=== PATIENT | female | born 2000 | race Hispanic/Latino ===

== ENCOUNTER 2019-01-05 21:28 | Emergency (ER) | payer OTHER, SELFPAY ==
--- NOTE | 2019-01-05 22:45 | EDPHYS ---
Physician Documentation [facility] Name: Dayanara Briceno Age: 18 yrs Sex: Female : 2000 Arrival Date: 01/05/2019 Time: 21:28 Bed 12 Private MD: ED Physician Hansel Ceballos HPI: 01/05 21:51 This 18 yrs old Female presents to ER via Wheelchair with complaints of Ankle snw Injury. 21:51 The patient presents with pain, that is acute, swelling, tenderness. The complaints snw affect the right ankle. Onset: The symptoms/episode began/occurred suddenly, just prior to arrival. Context: The problem was sustained outdoors, resulted from a mis-step by the patient, stair, The mechanism of injury involved inversion of the affected ankle. The patient is unable to bear weight. The patient is not able to ambulate. Associated signs and symptoms: The patient has no apparent associated signs or symptoms. Severity of symptoms: At their worst the symptoms were moderate. The patient has not experienced similar symptoms in the past. The patient has not recently seen a physician. 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 - Social history:: Smoking status: Patient/guardian denies using tobacco, Patient uses alcohol, occasionally. - Ebola Screening: : Patient negative for fever greater than or equal to 101.5 degrees Fahrenheit, and additional compatible Ebola Virus Disease symptoms Patient denies exposure to infectious person Patient denies travel to an Ebola-affected area in the 21 days before illness onset. ROS: 21:50 Constitutional: Negative for fever, chills, and weight loss, Eyes: Negative for injury, snw pain, redness, and discharge, ENT: Negative for injury, pain, and discharge, Neck: Negative for injury, pain, and swelling, Cardiovascular: Negative for chest pain, palpitations, and edema, Respiratory: Negative for shortness of breath, cough, wheezing, and pleuritic chest pain, Abdomen/GI: Negative for abdominal pain, nausea, vomiting, diarrhea, and constipation, Back: Negative for injury and pain, : Negative for injury, bleeding, discharge, and swelling, Skin: Negative for injury, rash, and discoloration, Neuro: Negative for headache, weakness, numbness, tingling, and seizure, Psych: Negative for depression, anxiety, suicide ideation, homicidal ideation, and hallucinations. 21:50 MS/extremity: Positive for injury or acute deformity, pain, of the right lateral malleolus. Exam: 21:50 Constitutional: This is a well developed, well nourished patient who is awake, alert, snw and in no acute distress. Head/Face: Normocephalic, atraumatic. Eyes: Pupils equal round and reactive to light, extra-ocular motions intact. Lids and lashes normal. Conjunctiva and sclera are non-icteric and not injected. Cornea within normal limits. Periorbital areas with no swelling, redness, or edema. ENT: Nares patent. No nasal discharge, no septal abnormalities noted. Tympanic membranes are normal and external auditory canals are clear. Oropharynx with no redness, swelling, or masses, exudates, or evidence of obstruction, uvula midline. Mucous membranes moist. Neck: Trachea midline, no thyromegaly or masses palpated, and no cervical lymphadenopathy. Supple, full range of motion without nuchal rigidity, or vertebral point tenderness. No Meningismus. Chest/axilla: Normal chest wall appearance and motion. Nontender with no deformity. No lesions are appreciated. Cardiovascular: Regular rate and rhythm with a normal S1 and S2. No gallops, murmurs, or rubs. Normal PMI, no JVD. No pulse deficits. Respiratory: Lungs have equal breath sounds bilaterally, clear to auscultation and percussion. No rales, rhonchi or wheezes noted. No increased work of breathing, no retractions or nasal flaring. Abdomen/GI: Soft, non-tender, with normal bowel sounds. No distension or tympany. No guarding or rebound. No evidence of tenderness throughout. Back: No spinal tenderness. No costovertebral tenderness. Full range of motion. Skin: Warm, dry with normal turgor. Normal color with no rashes, no lesions, and no evidence of cellulitis. Neuro: Awake and alert, GCS 15, oriented to person, place, time, and situation. Cranial nerves II-XII grossly intact. Motor strength 5/5 in all extremities. Sensory grossly intact. Cerebellar exam normal. Normal gait. Psych: Awake, alert, with orientation to person, place and time. Behavior, mood, and affect are within normal limits. 21:50 Musculoskeletal/extremity: Extremities: grossly normal except: noted in the right lateral malleolus: decreased ROM, pain, tenderness, ROM: intact in all extremities, Circulation is intact in all extremities. Sensation intact. Compartment Syndrome exam of affected extremity: no numbness, no tingling, no sensation deficit. Vital Signs: 21:30 BP 113 / 64; Pulse 89; Resp 18; Temp 97.5(O); Pulse Ox 99% on R/A; Weight 68.04 kg (R); fc Height 5 ft. 2 in. (157.48 cm) (R); Pain 7/10; 21:30 Body Mass Index 27.44 (68.04 kg, 157.48 cm) fc MDM: 21:43 Patient medically screened. snw 22:57 Data reviewed: vital signs, nurses notes. Data interpreted: Pulse oximetry: on room air snw is 99 %. Interpretation: normal. Counseling: I had a detailed discussion with the patient and/or guardian regarding: the historical points, exam findings, and any diagnostic results supporting the discharge/admit diagnosis, radiology results, the need for outpatient follow up, to return to the emergency department if symptoms worsen or persist or if there are any questions or concerns that arise at home. Special discussion: Based on the history and exam findings, there is no indication for further emergent testing or inpatient evaluation. I discussed with the patient/guardian the need to see the orthopedic surgeon for further evaluation of the symptoms. I discussed with the patient/guardian the need to see the primary care provider for further evaluation of the symptoms. 01/05 21:46 Order name: Ankle Right 3 View XRAY snw 01/05 21:46 Order name: Ice pack; Complete Time: 22:07 snw 01/05 22:43 Order name: Walking boot; Complete Time: 23:38 snw Administered Medications: No medications were administered Disposition: 01/06 01:35 Co-signature as Attending Physician, Hansel Ceballos MD. acosta Disposition: 01/05/19 22:44 Discharged to Home. Impression: Sprain of ankle. - Condition is Stable. - Discharge Instructions: Ankle Sprain, Cast or Splint Care, Adult, Ankle Pain, Cryotherapy. - Prescriptions for Diclofenac Sodium 75 mg Oral Tablet Sustained Release - take 1 tablet by ORAL route 2 times per day; 30 tablet. - Medication Reconciliation Form, Thank You Letter, Antibiotic Education, Prescription Opioid Use, Work release form form. - Follow up: Private Physician; When: 2 - 3 days; Reason: Recheck today's complaints, Continuance of care, Re-evaluation by your physician. Follow up: Emergency Department; When: As needed; Reason: Worsening of condition. Signatures: Dispatcher [employer] EDMS Hansel Ceballos MD MD pkl Therrien, Shelly, CERTIFIED DIETARY MANAGER-C CERTIFIED DIETARY MANAGER-Csnw Pippa Chin RN RN fc Corrections: (The following items were deleted from the chart) 01/05 23:42 22:44 01/05/2019 22:44 Discharged to Home. Impression: Sprain of ankle. Condition is fc Stable. Forms are Medication Reconciliation Form, Thank You Letter, Antibiotic Education, Prescription Opioid Use. Follow up: Private Physician; When: 2 - 3 days; Reason: Recheck today's complaints, Continuance of care, Re-evaluation by your physician. Follow up: Emergency Department; When: As needed; Reason: Worsening of condition. snw
--- NOTE | 2019-01-05 22:45 | ER ---
Nurse's Notes [facility] Name: Dayanara Briceno Age: 18 yrs Sex: Female : 2000 Arrival Date: 01/05/2019 Time: 21:28 Bed 12 Private MD: Diagnosis: Sprain of ankle Presentation: 01/05 21:30 Presenting complaint: Patient states: that she was walking down the stairs and when she fc stepped down she felt her right ankle roll and heard a cracking sound. Transition of care: patient was not received from another setting of care. Onset of symptoms was January 05, 2019 at 21:00. Risk Assessment: Do you want to hurt yourself or someone else? Patient reports no desire to harm self or others. Initial Sepsis Screen: Does the patient meet any 2 criteria? No. Patient's initial sepsis screen is negative. Does the patient have a suspected source of infection? No. Patient's initial sepsis screen is negative. Care prior to arrival: None. 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 - Social history:: Smoking status: Patient/guardian denies using tobacco, Patient uses alcohol, occasionally. - Ebola Screening: : Patient negative for fever greater than or equal to 101.5 degrees Fahrenheit, and additional compatible Ebola Virus Disease symptoms Patient denies exposure to infectious person Patient denies travel to an Ebola-affected area in the 21 days before illness onset. Screenin:50 Abuse screen: Denies threats or abuse. Denies injuries from another. Nutritional la1 screening: No deficits noted. Tuberculosis screening: No symptoms or risk factors identified. Fall Risk None identified. Assessment: 21:49 General: Appears comfortable, Behavior is calm, cooperative. General: Behavior is. la1 Pain: Complains of pain in right lateral malleolus. Musculoskeletal: Circulation, motion, and sensation intact. Capillary refill < 3 seconds, is brisk, in bilateral toes. Range of motion: limited in right ankle. Vital Signs: 21:30 BP 113 / 64; Pulse 89; Resp 18; Temp 97.5(O); Pulse Ox 99% on R/A; Weight 68.04 kg (R); fc Height 5 ft. 2 in. (157.48 cm) (R); Pain 7/10; 21:30 Body Mass Index 27.44 (68.04 kg, 157.48 cm) ED Course: 21:28 Patient arrived in ED. ds1 21:30 Arm band placed on Patient placed in an exam room, on a stretcher. fc 21:31 [facility]icks[facility]-C [facility]. snw 21:31 Hansel Ceballos MD is Attending Physician. snw 21:49 Reynaldo Marcum, RN is Primary Nurse. la1 21:50 Triage completed. fc 21:50 Call light in reach. la1 21:50 Arm band placed on left wrist. la1 21:50 No provider procedures requiring assistance completed. Patient did not have IV access la1 during this emergency room visit. 22:38 Ankle Right 3 View XRAY In Process Unspecified. EDMS 23:25 right walking boot. fc Administered Medications: No medications were administered Outcome: 22:44 Discharge ordered by . snw 23:38 Discharged to home ambulatory. 23:38 Condition: good 23:38 Discharge instructions given to patient, family, Instructed on discharge instructions, follow up and referral plans. medication usage, elevation of leg Demonstrated understanding of instructions, follow-up care, medications, elevation Prescriptions given X 1. 23:42 Patient left the ED. Signatures: Dispatcher [employer] EDMS Ann Dickson FNP-C FNP-Pippa Melgoza RN RN Rosalina Gale ds1 Reynaldo Marcum, CLARITZA RN la1
--- NOTE | 2019-01-06 08:28 | RAD REPORT ---
EXAM DESCRIPTION: RAD - Ankle Right 3 View - 01/05/2019 10:38 pm CLINICAL HISTORY: Ankle pain, twisting injury COMPARISON: None. FINDINGS: No fracture, dislocation or periosteal reaction. No joint effusion seen. No joint space na rrowing. Lateral soft tissue swelling is present. IMPRESSION: Soft tissue swelling with no right ankle fracture.
== END 2019-01-05 23:42 | disposition home or self-care (01) ==
LOC: ER 21:28
DX: S93.401A Sprain of unspecified ligament of right ankle, initial encounter (principal); X50.1XXA Overexertion from prolonged static or awkward postures, initial encounter
CPT/HCPCS: 99283

== ENCOUNTER 2019-09-05 12:20 | Emergency (ER) | payer SELFPAY ==
--- OUTSIDE RECORDS SUMMARY | 2019-09-05 12:23 | XMS REPORT | Summary of Care ---
:2000 Author Organization [facility] Address [address] [place] [id number] Care Team Providers Name Role Phone Pcp, Patient Does Not Have A Primary Care Provider Reason for Visit Reason Comments Follow-up Ankle Pain right ankle sprain Encounter Details Date Type Department Care Team Description 02/01/2019 Office Visit [facility] Jesus Higgins S, Sprain of anterior Surgery- [facility] talofibular ligament [address], [address] of right ankle, [address] [place] [address] [place], [place] (Primary Dx) [phone] [id number] Allergies No Known Allergiesdocumented as of this encounter (statuses as of 02/01/2019) Medications Medication Sig Dispensed Refills Start Date End Date Status diclofenac 75 mg EC TK 1 T PO BID. 0 01/06/2019 Active tablet LORATADINE ORAL Take by mouth. 0 Active documented as of this encounter (statuses as of 02/01/2019) Active Problems Not on filedocumented as of this encounter (statuses as of 02/01/2019) Social History Tobacco Use Types Packs/Day Years Used Date Never Smoker Smokeless Tobacco: Never Used Sex Assigned at Date Recorded Not on file Job Start Date Occupation Industry Not on file Not on file Not on file Travel History Travel Start Travel End No recent travel history available. documented as of this encounter Last Filed Vital Signs Vital Sign Reading Time Taken Comments Blood Pressure 96/68 02/01/2019 10:11 AM CDT Pulse - - Temperature - - Respiratory Rate - - Oxygen Saturation - - Inhaled Oxygen Concentration - - Weight 70.3 kg (155 lb) 02/01/2019 10:11 AM CDT Height 157.5 cm (5' 2") 02/01/2019 10:11 AM CDT Body Mass Index 28.35 02/01/2019 10:11 AM CDT documented in this encounter Progress Notes Jesus Higgins, PAC - 02/01/2019 10:15 AM CDT Cc: Dayanara Briceno is a 18 year old female Chief Complaint Patient presents with Follow-up Ankle Pain right ankle sprain Vitals: 02/01/19 1011 BP: 96/68 Weight: 70.3 kg (155 lb) Height: 62" (157.5 cm) [facility] #[id number] - [place], [place] - [address] [facility] [employer] [facility] [employer] Patient coming in for 3 week follow up on right ankle sprain. All Vitals taken, allergies and all medications reviewed, fall risk assessed. KEHINDE THACKER MA 02/01/2019 10:12 AM Dayanara Briceno is a 18 year old female. Here for 3 week follow-up right ankle sprain, He has been wearing her cast boot for 3 weeks the pain is greatly improved and she no longer has some swelling. inversion injury walking down stairs heard a "crackle" , 2/10 pain, worse in the morning, arrived in cast boot. Seen at [facility] ED, diclofenac sodium prescribed. Echymosis. Allergies Dayanara has No Known Allergies. Medications Outpatient Medications Prior to Visit Medication Sig Dispense Refill diclofenac 75 mg EC tablet TK 1 T PO BID. 0 LORATADINE ORAL Take by mouth. No facility-administered medications prior to visit. Histories No past medical history on file. No past surgical history on file. Social History Socioeconomic History Marital status: Single Spouse name: Not on file Number of children: Not on file Years of education: Not on file Highest education level: Not on file Occupational History Not on file Social Needs Financial resource strain: Not on file Food insecurity: Worry: Not on file Inability: Not on file Transportation needs: Medical: Not on file Non-medical: Not on file Tobacco Use Smoking status: Never Smoker Smokeless tobacco: Never Used Substance and Sexual Activity Alcohol use: Not on file Drug use: Not on file Sexual activity: Not on file Lifestyle Physical activity: Days per week: Not on file Minutes per session: Not on file Stress: Not on file Relationships Social connections: Talks on phone: Not on file Gets together: Not on file Attends baptist service: Not on file Active member of club or organization: Not on file Attends meetings of clubs or organizations: Not on file Relationship status: Not on file Intimate partner violence: Fear of current or ex partner: Not on file Emotionally abused: Not on file Physically abused: Not on file Forced sexual activity: Not on file Other Topics Concern Not on file Social History Narrative Not on file No family history on file. Review of Systems Constitutional: Negative. HENT: Negative. Eyes: Negative. Respiratory: Negative. Breasts: Negative. Cardiovascular: Negative. Gastrointestinal: Negative. Genitourinary: Negative. Musculoskeletal: Positive for joint swelling. Skin: Negative. Neurological: Negative. Psychiatric/Behavioral: Negative. Endocrine: Endocrine negative Vital Signs BP 96/68 | Ht 62" (157.5 cm) | Wt 70.3 kg (155 lb) | BMI 28.35 kg/m Physical Exam Musculoskeletal: Physical Exam Constitutional: oriented to person, place, and time. appears well-developed and well-nourished. HENT: Head: Normocephalic and atraumatic. Right Ear: External ear normal. Left Ear: External ear normal. Eyes: Conjunctivae are normal. Neck: Normal range of motion. No strabismus Neck supple. Cardiovascular: Normal rate and regular rhythm. Pulmonary/Chest: Normal respiratory rate equal chest rise and fall in no apparent distress Abdominal: Abdomen nondistended nontender Neurological: alert and oriented to person, place, and time. No asymmetry Skin: Skin is warm and dry. Psychiatric: normal mood and affect. behavior is normal. Judgment and thought content normal. Nursing note and vitals reviewed. Her cast boot was removed and she has no edema she is nontender to palpation of all the ligaments ofher ankle is not exacerbated with inversion or eversion Assessment/Plan Diagnosis 1. Sprain of anterior talofibular ligament of right ankle, initial encounter Plan At this point she can come out of her cast boot and work on her ankle rehabilitation program and follow-up as needed only Perform ankle range of motion in the pattern of the alphabet. This connects the brain to the ankle. Perform as many of the letter as of the alphabet as you can until you can without pain until you can do the entire alphabet. Then start ankle strengthening by getting the weakest theraband at the [employer] or at your pharmacy, start with pressing down like a gas pedal ankle flexion, then tie a loop with the Theraband and put the loop on the side of the foot move the foot laterally then putthe loop on the other side. Tie the Therapy band to a fixed object such as a table leg. The foot - move the foot medially. Then put the loop on the top of the foot pick the foot up these are for directions up down left and right perform in sets of 10. Do as many sets of 10. As you can without painuntil you can do 8 sets of 10. Recommend a lace up ankle brace Swede-O type documented in this encounter Plan of Treatment Health Maintenance Due Date Last Done Comments MENINGOCOCCAL B VACCINES (1 of 2 - 2008 Risk Bexsero 2-dose series) VARICELLA VACCINES (1 of 2 - 13+ 2011 2-dose series) HPV VACCINES (1 - Female 3-dose 2013 series) CHLAMYDIA SCREENING 2014 DTaP,Tdap,and Td Vaccines (1 - 2017 Tdap) INFLUENZA VACCINE 03/03/2019 MENINGOCOCCAL VACCINE Aged Out No longer eligible based on patient's age to complete this topic PNEUMOCOCCAL 0-64 YEARS COMBINED Aged Out No longer eligible based on SERIES patient's age to complete this topic documented as of this encounter Results Not on filedocumented in this encounter Visit Diagnoses Diagnosis Sprain of anterior talofibular ligament of right ankle, initial encounter - Primary documented in this encounter
--- OUTSIDE RECORDS SUMMARY | 2019-09-05 12:23 | XMS REPORT ---
:2000 Author Organization [facility] Address [address] [place] [address] [address] [place] [address] Care Team Providers Name Role Phone Unavailable Unavailable Unavailable Problems This patient has no known problems. Allergies, Adverse Reactions, Alerts This patient has no known allergies or adverse reactions. Medications This patient has no known medications.
--- OUTSIDE RECORDS SUMMARY | 2019-09-05 12:23 | XMS REPORT | Summary of Care ---
:[address] [facility] Address [address] [place] [id number] Care Team Providers Name Role Phone Pcp, Patient Does Not Have A Primary Care Provider Reason for Visit Reason Comments Follow-up Ankle Pain right ankle sprain Encounter Details Date Type Department Care Team Description 02/01/[address] [facility] Orthopaedic Jesus Higgins S, Sprain of anterior Surgery- [facility] talofibular ligament [address], [address] of right ankle, [address] [place] [address] [place], [place] (Primary Dx) [phone] Allergies No Known Allergiesdocumented as of [...] kg (155 lb) Height: 62" (157.5 cm) [facility] #[id number] - [place], [place] - [address] [facility] [employer] [facility] [employer] Patient coming in for 3 week follow [...] morning, arrived in cast boot. [facility]en at [facility] ED, diclofenac sodium prescribed. Echymosis. Allergies Dayanara [...] file Gets together: Not on file Attends sikhism service: Not on file Active member of [...] by getting the weakest theraband at the [employer] or at your pharmacy, start with pressing [...]
[2019-09-05] MEDS ORDERED: LIDOCAINE 1% MPF 5 ML VIAL ONE (12:54)
[2019-09-05] MEDS ORDERED: BUPIVACAINE 0.5% PF 10 ML VIAL ONE (12:54)
--- NOTE | 2019-09-05 13:36 | ER ---
Nurse's Notes [facility] Name: Dayanara Briceno Age: 19 yrs Sex: Female : 2000 Arrival Date: 09/05/2019 Time: 12:23 Bed 10 Private MD: Diagnosis: Laceration without foreign body of left little finger without damage to nail Presentation: 09/04 12:42 Chief complaint: Patient states: was carrying a glass in left hand, glass broke and cut iw her left pinky, occurred less than an hour ago. Coronavirus screen: The patient has NOT traveled to a country currently being monitored by the [facility] within the last 14 days. Proceed with normal triage procedures. The patient has NOT had contact with any known and/or suspected case of coronavirus. Ebola Screen: Patient negative for fever greater than or equal to 101.5 degrees Fahrenheit, and additional compatible Ebola Virus Disease symptoms Patient denies exposure to infectious person. Patient denies travel to an Ebola-affected area in the 21 days before illness onset. No symptoms or risks identified at this time. Initial Sepsis Screen: Does the patient meet any 2 criteria? No. Patient's initial sepsis screen is negative. Does the patient have a suspected source of infection? No. Patient's initial sepsis screen is negative. Risk Assessment: Do you want to hurt yourself or someone else? Patient reports no desire to harm self or others. 12:42 Method Of Arrival: Ambulatory iw 12:42 Acuity: GILLIAN 4 iw 13:00 Onset of symptoms was September 05, 2019. iw Triage Assessment: 13:00 General: Appears in no apparent distress. Behavior is calm. Injury Description: iw Laceration sustained to palmar aspect of proximal phalanx of left little finger. 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 - Social history:: Smoking status: Patient denies any tobacco usage or history of. Screenin:01 Abuse screen: Denies threats or abuse. Denies injuries from another. Nutritional iw screening: No deficits noted. Tuberculosis screening: No symptoms or risk factors identified. Fall Risk None identified. Assessment: 12:50 General: Appears in no apparent distress. Behavior is calm, cooperative. Pain: iw Complains of pain in palmar aspect of middle phalanx of left little finger and palmar aspect of middle phalanx of left index finger. Neuro: Level of Consciousness is awake, alert, obeys commands, Moves all extremities. Musculoskeletal: Range of motion: intact in all extremities. Injury Description: Laceration sustained to palmar aspect of proximal phalanx of left little finger and palmar aspect of middle phalanx of left little finger is jagged, 0.5 to 2.5 cm long, was sustained no active bleeding noted at this time. Vital Signs: 12:42 BP 134 / 78; Pulse 84; Resp 16; Temp 98.0; Pulse Ox 99% on R/A; Weight 77.11 kg; Height iw 5 ft. 2 in. (157.48 cm); Pain 2/10; 12:42 Body Mass Index 31.09 (77.11 kg, 157.48 cm) iw ED Course: 12:23 Patient arrived in ED. mr 12:44 Triage completed. iw 12:44 Arm band placed on. iw 12:45 [facility] F[facility]-C [facility]. kb 12:45 Marcelo Johnson MD is Attending Physician. kb 12:50 Patient has correct armband on for positive identification. iw 13:02 Apurva Chew, RN is Primary Nurse. iw 13:50 Assist provider with laceration repair on palmar aspect of middle phalanx of left index iw finger and palmar aspect of proximal phalanx of left little finger and palmar aspect of middle phalanx of left little finger that was between 2.6 to 7.5 cm using sutures. Set up tray. Performed by Nayeli TALLEY Dressed with 4X4s, Neosporin, Patient tolerated well. Patient did not have IV access during this emergency room visit. Administered Medications: 13:17 Drug: Lidocaine (1 %) 1 vials Volume: 5 ml; Route: Infiltration; iw 13:17 Drug: Marcaine (0.5 %) 1 vials Volume: 10 ml; Route: Infiltration; iw Outcome: 13:34 Discharge ordered by . kb 14:01 Discharged to home ambulatory. iw 14:01 Condition: good 14:01 Discharge instructions given to patient, Instructed on discharge instructions, follow up and referral plans. Demonstrated understanding of instructions, follow-up care. 14:02 Patient left the ED. iw Signatures: Nayeli Reyes, PLAN EXAMINER-C PLAN EXAMINER-Kaity Young mr Apurva Chew, RN RN iw
--- NOTE | 2019-09-05 13:37 | EDPHYS ---
Physician Documentation [facility] Name: Dayanara Briceno Age: 19 yrs Sex: Female : 2000 Arrival Date: 09/05/2019 Time: 12:23 Bed 10 Private MD: ED Physician Marcelo Johnson HPI: 09/04 13:01 This 19 yrs old Female presents to ER via Ambulatory with complaints of Finger kb Injury. 13:01 The patient has a laceration related to: carrying glasses and one broke occurred at kb work, and there are no complicating factors. The injury was accidental. The laceration(s) is(are) located on the palmar aspect of middle phalanx of left little finger. Onset: The symptoms/episode began/occurred just prior to arrival. Associated signs and symptoms: The patient has no apparent associated signs or symptoms. The patient has not experienced similar symptoms in the past. The patient has not recently seen a physician. Pt reports she put one glass on top of another to carry them and the bottom glass broke causing a laceration to finger. Skin flap noted . 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 - Social history:: Smoking status: Patient denies any tobacco usage or history of. ROS: 12:59 Constitutional: Negative for fever, chills, and weight loss, Cardiovascular: Negative kb for chest pain, palpitations, and edema, Respiratory: Negative for shortness of breath, cough, wheezing, and pleuritic chest pain, Abdomen/GI: Negative for abdominal pain, nausea, vomiting, diarrhea, and constipation, Back: Negative for injury and pain, MS/Extremity: Negative for injury and deformity, Neuro: Negative for headache, weakness, numbness, tingling, and seizure. 12:59 Skin: Positive for laceration(s), of the palmar aspect of middle phalanx of left little finger. Exam: 12:59 Constitutional: This is a well developed, well nourished patient who is awake, alert, kb and in no acute distress. Head/Face: Normocephalic, atraumatic. Neck: Trachea midline, no thyromegaly or masses palpated, and no cervical lymphadenopathy. Supple, full range of motion without nuchal rigidity, or vertebral point tenderness. No Meningismus. Chest/axilla: Normal chest wall appearance and motion. Nontender with no deformity. No lesions are appreciated. Cardiovascular: Regular rate and rhythm with a normal S1 and S2. No gallops, murmurs, or rubs. Normal PMI, no JVD. No pulse deficits. Respiratory: Lungs have equal breath sounds bilaterally, clear to auscultation and percussion. No rales, rhonchi or wheezes noted. No increased work of breathing, no retractions or nasal flaring. Abdomen/GI: Soft, non-tender, with normal bowel sounds. No distension or tympany. No guarding or rebound. No evidence of tenderness throughout. MS/ Extremity: Pulses equal, no cyanosis. Neurovascular intact. Full, normal range of motion. Neuro: Awake and alert, GCS 15, oriented to person, place, time, and situation. Cranial nerves II-XII grossly intact. Motor strength 5/5 in all extremities. Sensory grossly intact. Cerebellar exam normal. Normal gait. 12:59 Skin: injury, laceration(s), the wound is approximately 1 cm(s), of the palmar aspect of middle phalanx of left little finger, that can be described as clean, no foreign body, irregular, without bleeding. Vital Signs: 12:42 BP 134 / 78; Pulse 84; Resp 16; Temp 98.0; Pulse Ox 99% on R/A; Weight 77.11 kg; Height iw 5 ft. 2 in. (157.48 cm); Pain 2/10; 12:42 Body Mass Index 31.09 (77.11 kg, 157.48 cm) iw Procedures: 12:58 Nerve block: (digital) of palmar aspect of proximal phalanx of left little finger kb Medication: Lidocaine 1% without epinephrine Marcaine 0.5%, Amount: 2.5 mls were injected, Effect: the patient has resolution of the pain, Set up for procedure. Performed by Nayeli TALLEY Patient tolerated well. Laceration: 13:33 Wound Repair of 1cm ( 0.4in ) subcutaneous laceration to palmar aspect of middle kb phalanx of left little finger. Irregularly shaped.. Skin/tissue flap noted.. Distal neuro/vascular/tendon intact. Anesthesia: Digital block administered with 1% lidocaine. Wound prep: Moderate cleansing with hibiclenz by me, Wound irrigation with saline. Skin closed with 4 5-0 Prolene using simple sutures and sterile technique. Patient tolerated well. MDM: 12:45 Patient medically screened. kb 13:01 Data reviewed: vital signs, nurses notes. Data interpreted: Pulse oximetry: on room air kb is 99 %. Interpretation: normal. 13:33 Counseling: I had a detailed discussion with the patient and/or guardian regarding: the kb historical points, exam findings, and any diagnostic results supporting the discharge/admit diagnosis, the need for outpatient follow up, a family practitioner, to return to the emergency department if symptoms worsen or persist or if there are any questions or concerns that arise at home. 09/04 12:58 Order name: Prolene, Sutures; Complete Time: 17:12 kb 09/04 12:58 Order name: Dressing - Wound; Complete Time: 17:12 kb 09/04 12:58 Order name: Gloves, Sterile; Complete Time: 17:12 kb 09/04 12:58 Order name: Setup Suture Tray; Complete Time: 17:12 kb Administered Medications: 13:17 Drug: Lidocaine (1 %) 1 vials Volume: 5 ml; Route: Infiltration; iw 13:17 Drug: Marcaine (0.5 %) 1 vials Volume: 10 ml; Route: Infiltration; iw Disposition: 17:16 Co-signature as Attending Physician, Marcelo Johnson MD I agree with the assessment and kdr plan of care. Disposition: 09/05/19 13:34 Discharged to Home. Impression: Laceration without foreign body of left little finger without damage to nail. - Condition is Stable. - Discharge Instructions: Laceration Care, Adult, [id number]. - Medication Reconciliation Form, Thank You Letter, Antibiotic Education, Prescription Opioid Use, Work release form form. - Follow up: Emergency Department; When: As needed; Reason: Worsening of condition. Follow up: Private Physician; When: 2 - 3 days; Reason: Recheck today's complaints, Continuance of care, Re-evaluation by your physician. Signatures: Nayeli Reyes, TACK WELDER-C TACK WELDER-Ckb Marcelo Johnson MD MD kdr Apurva Chew RN RN iw Corrections: (The following items were deleted from the chart) 13:01 12:59 Skin: Positive for laceration(s), of the palmar aspect of middle phalanx of left kb index finger, kb 13:01 12:59 Skin: injury, laceration(s), the wound is approximately 1 cm(s), of the palmar kb aspect of proximal phalanx of left little finger, that can be described as clean, no foreign body, irregular, without bleeding, kb 14:02 13:34 09/05/2019 13:34 Discharged to Home. Impression: Laceration without foreign body iw of left little finger without damage to nail. Condition is Stable. Forms are Medication Reconciliation Form, Thank You Letter, Antibiotic Education, Prescription Opioid Use. Follow up: Emergency Department; When: As needed; Reason: Worsening of condition. Follow up: Private Physician; When: 2 - 3 days; Reason: Recheck today's complaints, Continuance of care, Re-evaluation by your physician. kb
[2019-09-05 14:10] VITALS: BP 134/78; TEMP 98; O2SAT 99
== END 2019-09-05 14:02 | disposition home or self-care (01) ==
LOC: ER 12:20
PROC: 0JQK0ZZ Repair Left Hand Subcutaneous Tissue and Fascia, Open Approach (ICD-10-PCS; principal; 2019-09-05)
DX: S61.217A Laceration without foreign body of left little finger without damage to nail, initial encounter (principal); W25.XXXA Contact with sharp glass, initial encounter; Y93.89 Activity, other specified; Y92.89 Other specified places as the place of occurrence of the external cause; Y99.8 Other external cause status
CPT/HCPCS: 64450; 99283

== ENCOUNTER 2019-09-12 13:50 | Emergency (ER) | payer SELFPAY ==
--- OUTSIDE RECORDS SUMMARY | 2019-09-12 13:52 | XMS REPORT ---
:2000 [facility] Address [address] [place] [address] [address] [place] [address] Care Team Providers Name Role Phone Unavailable Unavailable Unavailable Problems This patient has no known problems. Allergies, Adverse Reactions, Alerts This patient has no known allergies or adverse reactions. Medications This patient has no known medications.
--- NOTE | 2019-09-12 14:42 | ER ---
Nurse's Notes [facility] Name: Dayanara Briceno Age: 19 yrs Sex: Female : 2000 Arrival Date: 09/12/2019 Time: 13:53 Bed 11 Private MD: Diagnosis: Encounter for removal of sutures Presentation: 09/11 14:14 Chief complaint: Patient states: Sutures to left pinky finger x 7 days. Coronavirus jl7 screen: The patient has NOT traveled to a country currently being monitored by the [facility] within the last 14 days. Proceed with normal triage procedures. Ebola Screen: No symptoms or risks identified at this time. Initial Sepsis Screen: Does the patient meet any 2 criteria? No. Patient's initial sepsis screen is negative. Does the patient have a suspected source of infection? No. Patient's initial sepsis screen is negative. Risk Assessment: Do you want to hurt yourself or someone else? Patient reports no desire to harm self or others. Onset of symptoms was September 04, 2019. 14:14 Method Of Arrival: Ambulatory [facility] 14:14 Acuity: GILLIAN 5 jl7 Triage Assessment: 14:14 General: Appears in no apparent distress. uncomfortable, Behavior is calm, cooperative, jl7 appropriate for age. Pain: Denies pain. 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 - Social history:: Smoking status: Patient denies any tobacco usage or history of. Screenin:17 Abuse screen: Denies threats or abuse. Denies injuries from another. Nutritional jl7 screening: No deficits noted. Tuberculosis screening: No symptoms or risk factors identified. Fall Risk None identified. Assessment: 14:17 General: See triage assessment. jl7 Vital Signs: 14:14 BP 116 / 84; Pulse 82; Resp 16; Temp 97.4; Pulse Ox 99% ; Pain 0/10; jl7 ED Course: 13:53 Patient arrived in ED. ag5 14:14 Arm band placed on right wrist. jl7 14:15 Triage completed. jl7 14:17 Kaylee Varela, RN is Primary Nurse. ls4 14:17 Patient has correct armband on for positive identification. jl7 14:17 No provider procedures requiring assistance completed. Patient did not have IV access jl7 during this emergency room visit. 14:18 Reynaldo Marcum FNP-C is PHCP. la1 14:18 Marcelo Johnson MD is Attending Physician. la1 14:19 PHCP role handed off by Reynaldo Marcum FNP-C jl7 14:19 Jose Alberto Gamboa PA is PHCP. jl7 Administered Medications: No medications were administered Outcome: 14:17 Discharged to home ambulatory. jl7 14:17 Condition: stable 14:17 Discharge instructions given to patient, Instructed on discharge instructions, follow up and referral plans. Demonstrated understanding of instructions, follow-up care. 14:20 Discharge ordered by . jr8 14:29 Patient left the ED. jl7 Signatures: Jose Alberto Gamboa PA PA jr8 Reynaldo Marcum FNP-C POLYSTYRENE BEAD MOLDER-Cla1 Nicanor Weir, RN RN jl7 Kaylee Varela, RN RN ls4 Shiv Easley [facility]
--- NOTE | 2019-09-12 14:43 | EDPHYS ---
Physician Documentation [facility] Name: Dayanara Briceno Age: 19 yrs Sex: Female : 2000 Arrival Date: 09/12/2019 Time: 13:53 Bed 11 Private MD: ED Physician Marcelo Johnson HPI: 09/11 14:20 This 19 yrs old Female presents to ER via Ambulatory with complaints of Suture jr8 Removal. 14:20 The patient has sutures on the right hand. Previous treatment: The patient was jr8 initially treated 7 day(s) ago. Sutures/anabel progress: The patient has no c/o's. The wound is well-healing with no redness, swelling, discharge, or dehiscence reported. The patient has not experienced similar symptoms in the past. The patient has not recently seen a physician. 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 - Social history:: Smoking status: Patient denies any tobacco usage or history of. ROS: 14:20 Cardiovascular: Negative for chest pain, palpitations, and edema, Respiratory: Negative jr8 for shortness of breath, cough, wheezing, and pleuritic chest pain, Back: Negative for injury and pain, MS/Extremity: Negative for injury and deformity, Skin: Negative for injury, rash, and discoloration, Neuro: Negative for headache, weakness, numbness, tingling, and seizure. 14:20 All other systems are negative. Exam: 14:20 Cardiovascular: Regular rate and rhythm with a normal S1 and S2. No gallops, murmurs, jr8 or rubs. Normal PMI, no JVD. No pulse deficits. Respiratory: Lungs have equal breath sounds bilaterally, clear to auscultation and percussion. No rales, rhonchi or wheezes noted. No increased work of breathing, no retractions or nasal flaring. MS/ Extremity: Pulses equal, no cyanosis. Neurovascular intact. Full, normal range of motion. Neuro: Awake and alert, GCS 15, oriented to person, place, time, and situation. Cranial nerves II-XII grossly intact. Motor strength 5/5 in all extremities. Sensory grossly intact. Cerebellar exam normal. Normal gait. 14:20 Skin: Wound recheck: Suture laceration closure: the wound is healing well, the edges are well approximated, no evidence of dehiscence, no drainage, no erythema, no swelling, previous laceration to right 5th digit. Vital Signs: 14:14 BP 116 / 84; Pulse 82; Resp 16; Temp 97.4; Pulse Ox 99% ; Pain 0/10; jl7 Procedures: 14:20 Suture/Staple removal: Removed 4 sutures, from right hand, site appears well healed, jr8 Patient tolerated well. MDM: 14:20 Patient medically screened. jr8 14:20 Data reviewed: vital signs, nurses notes, and as a result, I will discharge patient. jr8 Data interpreted: Pulse oximetry: on room air is 99 %. Interpretation: normal. Counseling: I had a detailed discussion with the patient and/or guardian regarding: the historical points, exam findings, and any diagnostic results supporting the discharge/admit diagnosis, the need for outpatient follow up, a family practitioner, to return to the emergency department if symptoms worsen or persist or if there are any questions or concerns that arise at home. Administered Medications: No medications were administered Disposition: 17:22 Co-signature as Attending Physician, Marcelo Johnson MD I agree with the assessment and kdr plan of care. Disposition: 1220 14:20 Discharged to Home. Impression: Encounter for removal of sutures. - Condition is Stable. - Discharge Instructions: Suture Removal, Care After. - Medication Reconciliation Form, Thank You Letter, Antibiotic Education, Prescription Opioid Use form. - Follow up: Private Physician; When: As needed; Reason: Wound Recheck, Recheck today's complaints, Continuance of care, Re-evaluation by your physician. - Problem is new. - Symptoms have improved. Signatures: Marcelo Johnson MD MD [facility] Jose Alberto Gamboa PA PA jr8 Nicanor Weir RN RN jl7 Corrections: (The following items were deleted from the chart) 14:26 14:20 Skin: Wound recheck: Suture laceration closure: the wound is healing well, the jr8 edges are well approximated, no evidence of dehiscence, no drainage, no erythema, no swelling, jr8 14:29 14:20 09/12/2019 14:20 Discharged to Home. Impression: Encounter for removal of jl7 sutures. Condition is Stable. Forms are Medication Reconciliation Form, Thank You Letter, Antibiotic Education, Prescription Opioid Use. Follow up: Private Physician; When: As needed; Reason: Wound Recheck, Recheck today's complaints, Continuance of care, Re-evaluation by your physician. Problem is new. Symptoms have improved. jr8
[2019-09-12 15:41] VITALS: BP 116/84; TEMP 97.4; O2SAT 99
== END 2019-09-12 14:29 | disposition home or self-care (01) ==
LOC: ER 13:50
DX: Z48.02 Encounter for removal of sutures (principal)
CPT/HCPCS: 99281